=== PATIENT | male | born 1995 | race Caucasian/White ===

== ENCOUNTER 2024-12-31 12:53 | Outpatient (AMB) | payer OTHER, SELFPAY ==
--- NOTE | 2024-12-31 12:57 | A.OFFPC_ITS ---
Vital Signs 12/31/24 12:58 12/31/24 13:01 12/31/24 13:03 Height 5 ft 11 in Weight 190 lb 8 oz BMI 26.6 BP 118/72 Blood Pressure Location Lt brachial Lt brachial Lt brachial Position Sitting Sitting Sitting Respiration 18 18 18 Pulse 60 Pulse Source Pulse Oximeter Temp 97.3 F Temp Source Temporal Artery Scan Temporal Artery Scan Temporal Artery Scan Pulse Oximetry (%) 96 Oxygen Delivery Method Room Air Room Air Room Air Intake Visit Reasons: OPERATIONAL RISK ANALYST // PE Request Photographic Technician Required: No Accompanied by: Self / Same As Patient Allergies Seasonal Allergies Allergy (Mild, Verified 12/31/24 13:10) Itchy Eyes Medication List - Last Reconciled 12/31/24 by SHANTELLE Yancey No Known Home Meds Tobacco use date assessed: 12/31/24 Dental Screening Dental Screen Date: 12/31/24 Did you have a dental visit in the last 12 months?: Yes Did you have a dental problem in the last 6 months where you did not have access to dental care?: No Was dental information given to patient?: Patient has dentist HPI OPERATIONAL RISK ANALYST // PE Request HPI Details Previous PCP: When he was in his teens Last visit: a long time Last PE: same Specialist: chiropractor OBGYN:n/a Past medical history: seasonal allegries, osteomyelitis 4 years old, sternum separation from wrestling, Medications: Family HX: maternal breast cancer, lung cancer and colon cancer, paternal grandmother dementia (80s) Problem: Reports that he is looking a generalized workup The patient is a 29-year-old male presenting for a wellness visit and general blood work. The patient reports a history of osteomyelitis during childhood, specifically around the age of [age]. He also experienced a sternum due to wrestling at the age of 16, which required him to refrain from contact sports for a few years. The patient has a family history of cancer, including breast, lung, and colon cancer on his mother's side. He is concerned about his energy levels and suspects low testosterone, having taken testosterone supplements at the age of 18. [facility] Medical History Injury of sternum Osteomyelitis Family History Maternal Grandmother Dementia Family history of colon cancer Paternal Aunt Family history of breast cancer Social History Household Members: None Housing: House Alcohol intake: unknown Patient Tobacco Use Status: Never used Tobacco e-Cigarette/Vaping Use: Never Used Current occupational status: employed Current occupation: Construction Cognitive needs: No Hearing needs: No Vision needs: No Questionnaire PHQ-9 Over the last 2 weeks, how often have you been bothered by any of the following problems? 1. Little interest or pleasure in doing things: not at all 2. Feeling down, depressed, or hopeless: not at all 3. Trouble falling or staying asleep, or sleeping too much: not at all 4. Feeling tired or having little energy: several days 5. Poor appetite or overeating: not at all 6. Feeling bad about yourself - or that you are a failure or have let yourself or your family down: not at all 7. Trouble concentrating on things, such as reading the newspaper or watching television: not at all 8. Moving or speaking so slowly that other people could have noticed. Or the opposite - being so fidgety or restless that you have been moving around a lot more than usual: not at all 9. Thoughts that you would be better off or of hurting yourself in some way: not at all Total score: 1 Depression Screening Interpretation: Negative Depression Screening Done: Yes 62677 - PHQ-9 Billing: Yes Source: Developed by Drs. Randy London, Lacey Simons, Neymar Jarvis and colleagues, with an educational nikolai from [employer]. Thrive Questionnaire I am a: Patient What is your living situation today?: I have a steady place to live Within the past 12 months, did the food you bought not last and you didn't have the money to get more?: Never true Within the past 12 months, did you worry whether your food would run out before you got money to buy more?: Never true Do you have trouble paying for medicines?: No Do you have trouble getting transportation to medical appointments?: No Do you have trouble paying your heating and electricity bill?: No Do you have trouble taking care of your child, family member or friend?: No Do you have trouble with day-to-day activities such as bathing, preparing meals, shopping, managing finances, etc.?: No Are you currently unemployed and looking for a job?: No Are you interested in more education?: No Please select the resources that you would like help with: None Currently or been in a relationship where the following occur: No concerns reported THRIVE Score: 0 AUDIT C Alcohol Use Questionnaire (AUDIT-C) 1. How often do you have a drink containing alcohol?: Never Total Score: 0 VIKAS-7 AMB Questionnaire VIKAS-7 Feeling nervous, anxious, or on edge: 0 = Not at all Not being able to stop or control worryin = Not at all Worrying too much about different things: 0 = Not at all Trouble relaxin = Not at all Being so restless that it is hard to sit still: 0 = Not at all Becoming easily annoyed or irritable: 0 = Not at all Feeling afraid as if something awful might happen: 0 = Not at all Total VIKAS-7 score (0-4 normal; 5-9 mild; 10-14 moderate; 15-21 severe): 0 Source: Developed by Drs. Randy London, Lacey Simons, Neymar Jarvis and colleagues, with an educational nikolai from [employer]. VIKAS-7 Assessment Billing VIKAS-7 Assessment Tool: VIKAS-7 Assessment 33520 Review of Systems Const Denies headache(s) and Reports lethargy Eyes Denies loss of vision ENT Denies vertigo, Denies dizziness, Denies headache(s) and Denies sore throat Card Denies chest pain, Denies leg edema and Denies lightheadedness Resp Denies cough, Denies hemoptysis and Denies wheezing GI Denies abdominal pain, Denies melena, Denies constipation, Denies diarrhea and Denies vomiting Denies dysuria, Denies urinary frequency and Denies urinary urgency Musc Denies arthralgias, Denies joint swelling, Denies numbness and Denies tingling Neuro Denies Abnormal speech present, Denies behavioral changes, Denies vertigo, Denies dizziness, Denies headache(s), Denies loss of vision, Denies memory loss, Denies numbness and Denies tingling Psych Denies anxiety, Denies behavioral changes, Denies depression, Denies memory loss and Denies panic attacks Torres/Lymph Denies easy bleeding and Denies easy bruising Aller/Immun Denies wheezing Physical exam (Primary Care) Vital Signs: Last Vital Signs Temp 97.3 F 12/31/24 13:03 Pulse 60 12/31/24 13:03 Resp 18 12/31/24 13:03 BP 118/72 12/31/24 13:03 Pulse Ox 96 12/31/24 13:03 Oxygen Delivery Method Room Air 12/31/24 13:03 BMI result Body Mass Index 26.6 Tobacco/Smoking Status: Tobacco use Status Tobacco use date assessed 12/31/24 12/31/24 13:09 Patient Tobacco Use Status Never used Tobacco 12/31/24 13:09 e-Cigarette/Vaping Use Never Used 12/31/24 13:09 PHQ-9: PHQ-9 Score PHQ-9: Total score 1 12/31/24 13:09 Depression Screening Interpretation: Negative Currently or been in a relationship where the following occur: No concerns reported Const General: healthy appearing, no acute distress, alert and awake Nutritional Appearance: well nourished Orientation/consciousness: oriented to person, oriented to place and oriented to time HENMT Ears: TM's normal bilaterally General nose exam: Normal nasal mucous membranes and turbinates present Eyes Conjunctivae: conjunctivae normal Sclerae: sclerae normal Pupils: Equal, round and reactive pupils present Neck Neck: Yes no lymphadenopathy and Yes no JVD Thyroid: Thyroid normal Carotids: no bruits Resp Effort & Inspection: normal respiratory effort and not tachypneic Auscultation: no crackles, no rales, no rhonchi and no wheezes Cardio Rate: regular rate Rhythm: regular rhythm Heart sounds: no murmurs and normal S1 and S2 GI Palpation (GI): Soft to palpation, nontender, no hepatomegaly and no splenomegaly Auscultation: normal bowel sounds Skin General skin exam: no rashes or lesions noted and dry skin Neuro General: oriented to person, oriented to place and oriented to time Cranial nerves: Yes Equal, round and reactive pupils present Speech: No Abnormal speech present Gait exam (Neuro): Normal gait present Motor exam (neuro): no tremor noted Extrem Right upper extremity: full ROM Left upper extremity: full ROM Right lower extremity: full ROM; no edema Left lower extremity: full ROM; no edema Psych Mental Status: mental status grossly normal Speech and movement: Normal speech and movement present Affect: normal affect Attitude: cooperative Thought process: Normal thought process present Coding Level of Care Code New Pt Level 3 (92078) Diagnoses Encounter to establish care with new provider Z76.89 Low energy R53.83 Seasonal allergies J30.2 Additional Codes PHQ-9 - 24398 - PHQ-9 Billing: Yes ([id number]) VIKAS-7 Assessment Billing - VIKAS-7 Assessment Tool: VIKAS-7 Assessment 44176 ([id number]) Time Spent (min) 34 Assessment & Plan Assessment & Plan (1) Encounter to establish care with new provider: Code(s): Z76.89 - Persons encountering health services in other specified circumstances Category: Medical Plan: The patient is 29 year old male that is new to the practice. He has not been to the doctors in years. Presenting for generalized work up/evaluation. Labs ordered, will advise (2) Low energy: Code(s): R53.83 - Other fatigue Category: Medical Plan: The patient expressed concerns about low energy levels and possible low testosterone, having previously taken testosterone supplements at age 18. Blood work including testosterone levels was recommended to assess the current status. (3) Seasonal allergies: Code(s): J30.2 - Other seasonal allergic rhinitis Category: Medical Plan: The patient reports experiencing seasonal allergies but is not currently on any medication for it. A plan to manage symptoms as needed was discussed. Orders: Orders Complete Blood Count Auto Diff Today R53.83 - Other fatigue, Z00.00 - Encounter for general adult medical examination without abnormal findings Lipid Panel Today R53.83 - Other fatigue, Z00.00 - Encounter for general adult medical examination without abnormal findings UA CC w/rflx Micro + Cult Today R53.83 - Other fatigue, Z00.00 - Encounter for general adult medical examination without abnormal findings Vitamin D 25-OH Total Today R53.83 - Other fatigue, Z00.00 - Encounter for general adult medical examination without abnormal findings Comprehensive [employer] Panel Fast Today R53.83 - Other fatigue, Z00.00 - Encounter for general adult medical examination without abnormal findings TSH reflex Free T4 Today R53.83 - Other fatigue, Z00.00 - Encounter for general adult medical examination without abnormal findings Testosterone, Free/Total Today R53.83 - Other fatigue, Z00.00 - Encounter for general adult medical examination without abnormal findings
[2024-12-31 12:58] VITALS: RESP 18
[2024-12-31 13:01] VITALS: RESP 18
[2024-12-31 13:03] VITALS: BP 118/72; PULSE 60; RESP 18; TEMP 36.3; O2SAT 96; BMI 26.6
--- OUTSIDE RECORDS SUMMARY | 2024-12-31 16:22 | XMS_ITS | Clinical Summary ---
Author Organization [facility] Address [address] [place] [address] Care Team Providers Care Furrier Apprentice Name Role Phone Unavailable Primary Care Provider Unavailabl e Allergies No known active allergies Medications No known medications Social History Tobacco Use Types Packs/Day Years Used Date Smoking Tobacco: Every Day Smokeless Tobacco: Never Sex and Gender Information Value Date Recorded Sex Assigned at Not on file Legal Sex Male 8:46 AM EDT Gender Identity Not on file Sexual Orientation Not on file Last Filed Vital Signs Vital Sign Reading Time Taken Comments Blood Pressure 108/68 12/01/2019 2:10 PM EDT Pulse 80 12/01/2019 2:10 PM EDT Temperature - - Respiratory Rate - - Oxygen Saturation 98% 12/01/2019 2:10 PM EDT Inhaled Oxygen Concentration - - Weight 72.6 kg (160 lb) 12/01/2019 2:10 PM EDT Height 176.5 cm (5' 9.5 ) 12/01/2019 2:10 PM EDT Body Mass Index 23.29 12/01/2019 2:10 PM EDT Plan of Treatment Health Maintenance Due Date Last Done Comments Hepatitis C Screening 1993 DTaP/Tdap/Td (1 - Tdap) 11/12/2011 Hep B (1 of 3 - 19+ 3-dose series) 2012 COVID-19 Vaccine ( - 2024-2 6 season) 2024 Influenza (#1) 2024 Zoster (Shingrix) (1 of 2) 11/12/2043 HPV Vaccine (No Doses Required) Completed Hep A Aged Out No longer eligi ble based on patient's age to complete this topic Hib Aged Out No longer eligi ble based on patient's age to complete this topic Meningococcal ACWY Aged Out No longer eligible based on patient's age to complete this topic Pneumococcal Aged Out No longer eligi ble based on patient's age to complete this topic
--- OUTSIDE RECORDS SUMMARY | 2024-12-31 16:22 | XMS_ITS | Clinical Summary ---
Author Organization [facility] Address [id number] [place] [id number] Care Team Providers Care Cannery Tender Engineer Name Role Phone Nicola Valencia MD Primary Care Provider Social History Tobacco Use Types Packs/Day Years Used Date Smoking Tobacco: Never Assessed Sex and Gender Information Value Date Recorded Sex Assigned at Not on file Legal Sex Male 9:41 PM EST Gender Identity Not on file Sexual Orientation Not on file Plan of Treatment Health Maintenance Due Date Last Done Comments DTaP,Tdap,and Td Vaccines (1 - Tdap) 2012 Hepatitis B Vaccines (1 of 3 - 19+ 3-dose series) 2012 HPV Vaccines (1 - 3-dose SCD M series) 2020 HIV Screening 12/25/2023 Hepatitis C Screening 12/25/2023 Social Influencers of Health Screening 12/25/2023 Depression Screening 03/19/2024 COVID-19 Vaccine (1 - 2023-2 5 season) 2024 Influenza Vaccine (#1) 2024 RSV Immunization Adult Patie nts (1 - 1-dose 75+ series) 2068 HIB Vaccines Aged Out No longer eligi ble based on patient's age to complete this topic Hepatitis A Vaccines Aged Out No long er eligible based on patient's age to complete this topic IPV Vaccines Aged Out No longer eligi ble based on patient's age to complete this topic MMR Vaccines Aged Out No longer eligi ble based on patient's age to complete this topic Meningococcal ACWY Vaccine Aged Out N o longer eligible based on patient's age to complete this topic Meningococcal B Vaccine Aged Out No l onger eligible based on patient's age to complete this topic Pneumococcal Vaccine: Pediat rics (0 to 5 Years) and At-Risk Patients (6 to 49 Years) Aged Out No longer eligible b ased on patient's age to complete this topic RSV Immunization Patients Un vanessa 20 months Aged Out No longer eligible b ased on patient's age to complete this topic Varicella Vaccines Aged Out No longer eligible based on patient's age to complete this topic Care Teams Cannery Tender Engineer Relationship Specialty Start Date End Date Nicola Valencia MD [address] [place] [address] PCP - General 07/24/23
== END 2024-12-31 13:29 | disposition home or self-care (01) ==
LOC: HO.HMCH 12:54
DX: Z76.89 Persons encountering health services in other specified circumstances (principal); R53.83 Other fatigue; J30.2 Other seasonal allergic rhinitis

== ENCOUNTER 2024-12-31 12:53 | Outpatient (REF) | payer OTHER, SELFPAY ==
[2024-12-31 14:09] LABS: MANUAL DIFF FLAG NO
[2024-12-31 14:43] LABS: Hematocrit 45.7 % (42.0-52.0); Hemoglobin 15.8 g/dl (14.0-18.0); Imm Gran Abs Auto 0.02 X10*3/uL (0.00-0.03); Imm Gran Pct Auto 0.3 % (0.0-0.4); Lymphocytes Absolute Auto 2.3 X10*3/uL (1.2-4.9); Mean Corpuscular HGB Conc 34.6 g/dl (31.0-36.0); Mean Corpuscular Hemoglobin 28.9 pg (27.0-33.0); Mean Corpuscular Volume 83.7 fL (80.0-98.0); NRBC Abs Auto 0.000 X10*3/uL (0.0-0.012); NRBC Pct Auto 0.0 /100WBC (0.0-0.2); Platelet Count 259 X10*3/uL (160-400); Red Blood Count 5.46 X10*6/uL (4.60-5.80); White Blood Count 7.2 X10*3/uL (4.8-10.8)
[2024-12-31 15:09] LABS: Appearance Urine Clear; Glucose Urine UA Negative (Negative); PH 5.5 (5.0-9.0); Specific Gravity - Urine 1.020 (1.005-1.025)
[2024-12-31 16:20] LABS: Alanine Aminotransferase 26 U/L (0-40); Albumin Level 5.1 g/dL (3.5-5.0); Alkaline Phosphatase 92 U/L (39-117); Anion Gap 10 (12-20); Aspartate Amino Transferase 25 U/L (5-37); Blood Urea Nitrogen 14 mg/dL (9-16); Calcium 9.4 mg/dL (8.4-10.2); Carbon Dioxide 29 mmol/L (22-29); Chloride 104 mmol/L (96-108); Cholesterol 245 mg/dL (<200); Estimated Glomerular Filt Rate > 60; HDL Cholesterol 35 mg/dL (>40); Potassium 4.4 mmol/L (3.3-5.1); Sodium 139 mmol/L (135-145); Total Protein 7.8 g/dL (6.5-8.0); Triglycerides 207 mg/dL (<150)
[2025-01-05 14:28] LABS: Testosterone, Free 74.8 pg/mL (35.0-155.0)
== END 2024-12-31 12:54 | disposition home or self-care (01) ==
LOC: HO.LAB 12:53
DX: Z00.00 Encounter for general adult medical examination without abnormal findings (principal); R53.83 Other fatigue; J30.2 Other seasonal allergic rhinitis; Z76.89 Persons encountering health services in other specified circumstances
CPT/HCPCS: 36415; 80053; 80061; 81003; 82306; 84402; 84403; 84443; 85025; 96127; 99202

== ENCOUNTER 2025-02-27 15:57 | Outpatient (AMB) | payer OTHER, SELFPAY ==
[2025-02-27 16:00] VITALS: BP 110/66; PULSE 70; RESP 18; O2SAT 96; BMI 26.5
--- NOTE | 2025-02-27 16:00 | MHC.PC.OV ---
Vital Signs 02/27/25 16:00 Height 5 ft 11 in Weight 190 lb BMI 26.5 BP 110/66 Blood Pressure Location Lt brachial Position Sitting Respiration 18 Pulse 70 Pulse Source Pulse Oximeter Temp Source Temporal Artery Scan Pulse Oximetry (%) 96 Oxygen Delivery Method Room Air Intake Visit Reasons: Annual exam Principal Statistical Scientist Required: No Accompanied by: Self / Same As Patient Allergies Seasonal Allergies Allergy (Mild, Verified 02/27/25 16:22) Itchy Eyes Medication List - Last Reconciled 02/27/25 by SHANTELLE Yancey No Known Home Meds Tobacco use date assessed: 02/27/25 Dental Screening Dental Screen Date: 02/27/25 Did you have a dental visit in the last 12 months?: Yes Did you have a dental problem in the last 6 months where you did not have access to dental care?: No Was dental information given to patient?: Patient has dentist HPI Annual exam HPI Details Dentist: up to date Eye: no Snellen: Right: Left: Corrected vision: no STI screening: Colonoscopy: n/a Pap Smer:n/a PHQ-9: Flu: no COVID: no Tdap: reports that this was within 10 years Diet:regular Exercise: not in awhile [facility] Medical History Injury of sternum Osteomyelitis Family History Maternal Grandmother Dementia Family history of colon cancer Paternal Aunt Family history of breast cancer Social History Household Members: None Housing: House Alcohol intake: unknown Patient Tobacco Use Status: Never used Tobacco e-Cigarette/Vaping Use: Never Used Current occupational status: employed Current occupation: Construction Cognitive needs: No Hearing needs: No Vision needs: No Questionnaire PHQ-9 Over the last 2 weeks, how often have you been bothered by any of the following problems? Depression Screening Interpretation: Negative Depression Screening Done: Yes Source: Developed by Drs. Randy London, Lacey Simons, Neymar Jarvis and colleagues, with an educational nikolai from [employer] Thrive Questionnaire Date Thrive assessed: 02/27/25 I am a: Patient What is your living situation today?: I have a steady place to live Within the past 12 months, did the food you bought not last and you didn't have the money to get more?: Never true Within the past 12 months, did you worry whether your food would run out before you got money to buy more?: Never true Do you have trouble paying for medicines?: No Do you have trouble getting transportation to medical appointments?: No Do you have trouble paying your heating and electricity bill?: No Do you have trouble taking care of your child, family member or friend?: No Do you have trouble with day-to-day activities such as bathing, preparing meals, shopping, managing finances, etc.?: No Are you currently unemployed and looking for a job?: No Are you interested in more education?: No Please select the resources that you would like help with: None Currently or been in a relationship where the following occur: No concerns reported THRIVE Score: 0 Review of Systems Narrative Review of Systems - Constitutional: Denies fever, chills. - Respiratory: Denies cough. - Musculoskeletal: Reports a history of a meniscus problem. Const Denies headache(s) and Reports lethargy Eyes Denies loss of vision ENT Denies vertigo, Denies dizziness, Denies headache(s) and Denies sore throat Card Denies chest pain, Denies leg edema and Denies lightheadedness Resp Denies cough, Denies hemoptysis and Denies wheezing GI Denies abdominal pain, Denies melena, Denies constipation, Denies diarrhea and Denies vomiting Denies dysuria, Denies urinary frequency and Denies urinary urgency Musc Denies arthralgias, Denies joint swelling, Denies numbness and Denies tingling Neuro Denies Abnormal speech present, Denies behavioral changes, Denies vertigo, Denies dizziness, Denies headache(s), Denies loss of vision, Denies memory loss, Denies numbness and Denies tingling Psych Denies anxiety, Denies behavioral changes, Denies depression, Denies memory loss and Denies panic attacks Torres/Lymph Denies easy bleeding and Denies easy bruising Aller/Immun Denies wheezing Physical exam (Primary Care) Vital Signs: Last Vital Signs Pulse 70 02/27/25 16:00 Resp 18 02/27/25 16:00 BP 110/66 12/12/25 16:00 Pulse Ox 96 02/27/25 16:00 Oxygen Delivery Method Room Air 02/27/25 16:00 BMI result Body Mass Index 26.5 Tobacco/Smoking Status: Tobacco use Status Tobacco use date assessed 02/27/25 02/27/25 16:08 Patient Tobacco Use Status Never used Tobacco 02/27/25 16:08 e-Cigarette/Vaping Use Never Used 02/27/25 16:08 Depression Screening Interpretation: Negative Thrive Assessment: Date of Thrive Assessment Date Thrive assessed 02/27/25 02/27/25 16:08 Currently or been in a relationship where the following occur: No concerns reported Narrative Physical Exam Const General: healthy appearing, no acute distress, alert and awake Nutritional Appearance: well nourished Orientation/consciousness: oriented to person, oriented to place and oriented to time HENMT Ears: TM's normal bilaterally General nose exam: Normal nasal mucous membranes and turbinates present Eyes Conjunctivae: conjunctivae normal Sclerae: sclerae normal Pupils: Equal, round and reactive pupils present Neck Neck: Yes no lymphadenopathy and Yes no JVD Thyroid: Thyroid normal Carotids: no bruits Resp Effort & Inspection: normal respiratory effort and not tachypneic Auscultation: no crackles, no rales, no rhonchi and no wheezes Cardio Rate: regular rate Rhythm: regular rhythm Heart sounds: no murmurs and normal S1 and S2 GI Palpation (GI): Soft to palpation, nontender, no hepatomegaly and no splenomegaly Auscultation: normal bowel sounds Skin General skin exam: no rashes or lesions noted and dry skin Neuro General: oriented to person, oriented to place and oriented to time Cranial nerves: Yes Equal, round and reactive pupils present Speech: No Abnormal speech present Gait exam (Neuro): Normal gait present Motor exam (neuro): no tremor noted Deep tendon reflexes (DTR's): Right triceps reflex intensity grade: 2+, Left triceps reflex intensity grade: 2+, Rt Biceps (C5, C6): 2+, Left biceps reflex intensity grade: 2+, Right brachioradialis reflex intensity grade: 2+, Left brachioradialis reflex intensity grade: 2+, Right patellar reflex intensity grade: 2+ and Left patellar reflex intensity grade: 2+ Extrem Right upper extremity: full ROM Left upper extremity: full ROM Right lower extremity: full ROM; no edema Left lower extremity: full ROM; no edema Psych Mental Status: mental status grossly normal Speech and movement: Normal speech and movement present Affect: normal affect Attitude: cooperative Thought process: Normal thought process present Results Reviewed Results Reviewed: Laboratory Tests 12/31/24 12/31/24 14:00 14:07 WBC 7.2 RBC 5.46 Hgb 15.8 Hct 45.7 MCV 83.7 MCH 28.9 MCHC 34.6 RDW 11.7 Plt Count 259 Sodium 139 Potassium 4.4 Chloride 104 Carbon Dioxide 29 Anion Gap 10 L BUN 14 Creatinine 0.89 Estim Creat Clear Calc Not Reportable Estimated GFR > 60 Fasting Glucose 89 Calcium 9.4 Total Bilirubin 0.6 AST 25 ALT 26 Alkaline Phosphatase 92 Total Protein 7.8 Albumin 5.1 H Triglycerides 207 H Cholesterol 245 H LDL Cholesterol, Calc 169 H HDL Cholesterol 35 L 25-OH Vitamin D Total 40.8 TSH 2.50 Total Testosterone 365 Fr Testosterone Dialys 74.8 Urine Color Yellow Urine Appearance Clear Urine pH 5.5 Ur Specific [place] 1.020 Urine Protein Negative Urine Glucose (UA) Negative Urine Ketones Negative Urine Blood Negative Urine Nitrite Negative Ur Leukocyte Esterase Negative Coding Level of Care Code Est Pt Prev Care [id number]([id number]) Diagnoses Annual physical exam Z00.00 Low energy R53.83 Seasonal allergies J30.2 Mixed hyperlipidemia E78.2 Hyperlipidemia type: mixed hyperlipidemia Time Spent (min) 33 Assessment & Plan Assessment & Plan (1) Annual physical exam: Code(s): Z00.00 - Encounter for general adult medical examination without abnormal findings Category: Medical Plan: Preventative guidelines and recent labs reviewed with the patient. The patient is not up to date on most vaccines. Reports that tetanus shot within 10 years but he is not sure when. (2) Low energy: Code(s): R53.83 - Other fatigue Category: Medical Plan: The patient expressed concerns about low energy levels and possible low testosterone, having previously taken testosterone supplements at age 18. Testosterone levels are within normal limits. Explained to the patient that this is probably due to him stopped working out. (3) Seasonal allergies: Code(s): J30.2 - Other seasonal allergic rhinitis Category: Medical Plan: The patient reports experiencing seasonal allergies but is not currently on any medication for it. A plan to manage symptoms as needed was discussed. (4) HLD (hyperlipidemia): Code(s): E78.5 - Hyperlipidemia, unspecified Category: Medical Qualifiers: Hyperlipidemia type: mixed hyperlipidemia Qualified Code(s): E78.2 - Mixed hyperlipidemia Plan: The patient's cholesterol is slightly elevated. The primary cause is thought to be dietary. Due to the patient's young age, medication will not be initiated at this time. The plan is to manage this with stricter dietary modifications, focusing on lean protein sources. Supplements were discussed as a possibility, but no specific plan was made. Plan Plan Patient was informed and verbally consented to the use of an ambient scribe for clinic note documentation during this visit. 1. Hypercholesterolemia The patient's cholesterol is slightly elevated. The primary cause is thought to be dietary. Due to the patient's young age, medication will not be initiated at this time. The plan is to manage this with stricter dietary modifications, focusing on lean protein sources. Supplements were discussed as a possibility, but no specific plan was made. 2. Meniscus Disorder The patient mentioned a meniscus issue in the past, but no further details or plans were discussed. Discussion Notes I discussed with the patient that his cholesterol is a little high, which seems to be related to his diet. I advised against starting medication at this point due to his age and recommended focusing on stricter dietary changes, specifically encouraging lean protein intake. We briefly touched on the possibility of supplements, but did not commit to a specific plan. I informed the patient that a urinalysis was not performed today. Patient Instructions - Focus on improving your diet to help lower your cholesterol. - Try to eat more lean protein. - We will not start any cholesterol medication at this time. - Call the office to schedule a follow-up appointment to review progress. Orders: Orders Lipid Panel 4 Months E78.5 - Hyperlipidemia, unspecified
--- OUTSIDE RECORDS SUMMARY | 2025-02-27 20:37 | XMS_ITS | Clinical Summary ---
Author Organization [facility] ity Address [id number] [place] [id number] Care Team Providers Care Seismograph Computer Name Role Phone Nicola Valencia MD Primary [...] Depression Screening 03/19/2024 COVID-19 Vaccine (1 - 2024-2 6 season) 2024 Influenza Vaccine (#1) 2024 RSV [...] age to complete this topic Care Teams Seismograph Computer Relationship Specialty Start Date End Date Nicola Valencia MD [address] [place] [id number] PCP - General 07/24/23
--- OUTSIDE RECORDS SUMMARY | 2025-02-27 20:37 | XMS_ITS | Clinical Summary ---
Author Organization [facility] Address [address] [place] [address] Care Team Providers Care [place] Support Worker Name Role Phone Unavailable Primary Care Provider [...]
== END 2025-02-27 16:51 | disposition home or self-care (01) ==
LOC: HO.HMCH 15:58
DX: Z00.00 Encounter for general adult medical examination without abnormal findings (principal); R53.83 Other fatigue; J30.2 Other seasonal allergic rhinitis; E78.2 Mixed hyperlipidemia

== ENCOUNTER → 2025-02-27 15:57 | Outpatient (BNVA) | payer OTHER, SELFPAY | DX: Z00.00 Encounter for general adult medical examination without abnormal findings (principal); R53.83 Other fatigue; J30.2 Other seasonal allergic rhinitis; E78.2 Mixed hyperlipidemia | CPT/HCPCS: 99395 ==